=== PATIENT | female | born 1970 | race African-American/Black ===

== ENCOUNTER 2022-08-10 19:40 | Emergency (ER) | payer MEDICAID ==
[~2022-08-10] VITALS: Ht 170.2 cm; Wt 75.0 kg
[2022-08-10 21:57] LABS: BASOPHILS % 0.2 % (0.0-2.0); EOSINOPHILS % 0.3 % (0.0-5.0); HEMATOCRIT. 34.2 % (36.0-48.0); HEMOGLOBIN. 11.5 g/dL (12.0-16.0); LYMPHOCYTES % 17.5 % (20.0-50.0); MEAN CORPUSCULAR HEMOGLOBIN 28.9 pg (28.0-32.0); MEAN CORPUSCULAR VOLUME 86.2 fL (81.0-99.0); MONOCYTES % 5.2 % (2.0-8.0); NEUTROPHILS % 76.8 % (40.0-76.0); RED BLOOD CELL COUNT 3.97 mill/uL (4.2-5.4); RED CELL DISTRIBUTION WIDTH 14.6 % (11.6-14.6)
[2022-08-10 22:05] LABS: CHLORIDE 105 mEq/L (98-107)
[2022-08-10 22:09] LABS: PROTHROMBIN TIME 11.2 sec (9.6-11.0)
[2022-08-10 23:30] VITALS: BP 114/70
== END 2022-08-10 23:40 | disposition home or self-care (01) ==
LOC: ER 19:40
DX: T40.711A Poisoning by cannabis, accidental (unintentional), initial encounter (principal); F12.929 Cannabis use, unspecified with intoxication, unspecified; G25.1 Drug-induced tremor; R42 Dizziness and giddiness; Y93.89 Activity, other specified; Y92.830 Public park as the place of occurrence of the external cause
CPT/HCPCS: 36415; 71045; 80053; 84484; 85025; 99285